=== PATIENT | female | born 2005 | race Caucasian/White ===

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

== ENCOUNTER 2024-06-16 01:51 | Emergency (ER) | payer OTHER, SELFPAY ==
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
[2024-06-16 02:42] VITALS: BP 121/89; PULSE 69; RESP 18; O2SAT 100
== END 2024-06-16 02:43 | disposition home or self-care (01) ==
PROVIDERS: Emergency Provider Emergency Medicine; PCP Nurse Practitioner Family
DX: M79.604 Pain in right leg (principal); G89.29 Other chronic pain; M23.91 Unspecified internal derangement of right knee
CPT/HCPCS: 99283